=== PATIENT | male | born 1970 | race African-American/Black ===

== ENCOUNTER 2017-09-10 23:59 | Emergency (ER) | payer MEDICAID ==
[~2017-09-10] VITALS: Ht 177.8 cm; Wt 95.5 kg
[2017-09-11] VITALS: BP 140/80
[2017-09-11] MEDS ORDERED: FLUORESCEIN SODIUM 1MG/STRIP OP ONE (00:30)
[2017-09-11] MEDS ORDERED: TETRACAINE 0.5% OPHTH DROPS 4ML OP ONE (00:30)
[2017-09-11] MEDS ORDERED: BALANCED SALT IRRIG SOLN 15ML IO ONE (00:30)
== END 2017-09-11 01:40 | disposition home or self-care (01) ==
LOC: ER 23:59
DX: H10.11 Acute atopic conjunctivitis, right eye (principal); E11.9 Type 2 diabetes mellitus without complications; I10 Essential (primary) hypertension
CPT/HCPCS: 99283; J7040

== ENCOUNTER 2017-12-12 16:45 | Emergency (ER) | payer MEDICAID ==
[~2017-12-12] VITALS: Ht 177.8 cm; Wt 91.0 kg
[2017-12-12] MEDS ORDERED: LIDOCAINE HCL 1% 20ML VIAL (Pyxis) INJ MC ONE (21:45)
[2017-12-12] MEDS ORDERED: TETANUS, DIPHTHERIA, PERTUSSIS VAC/PF 0.5ML (>7YR OLD) IM ONE (21:45)
[2017-12-12] MEDS ORDERED: HYDROCODONE/ACETAMINOPHEN 5/325MG TABLET PO ONE (23:00)
[2017-12-12] MEDS ORDERED: MORPHINE SULFATE 10 MG/ML CPJ IM ONE (23:45)
[2017-12-12 23:54] LABS: BASOPHILS % 0.2 % (0.0-2.0); EOSINOPHILS % 0.1 % (0.0-5.0); HEMATOCRIT. 38.5 % (42.0-52.0); HEMOGLOBIN. 12.9 g/dL (14.0-18.0); LYMPHOCYTES % 16.7 % (20.0-50.0); MEAN CORPUSCULAR HEMOGLOBIN 30.7 pg (28.0-32.0); MEAN CORPUSCULAR VOLUME 91.7 fL (80.0-94.0); MEAN PLATELET VOLUME 8.8 fl (7.4-10.4); MONOCYTES % 8.8 % (2.0-8.0); NEUTROPHILS % 74.2 % (40.0-76.0); PLATELET 198 x1000/uL (130-400); RED CELL DISTRIBUTION WIDTH 13.7 % (11.6-14.6)
[2017-12-13 00:07] LABS: CHLORIDE 96 mEq/L (98-107)
[2017-12-13 00:43] VITALS: BP 159/96
== END 2017-12-13 00:56 | disposition home or self-care (01) ==
LOC: ER 20:39
DX: L02.211 Cutaneous abscess of abdominal wall (principal); I10 Essential (primary) hypertension; E11.9 Type 2 diabetes mellitus without complications; F17.200 Nicotine dependence, unspecified, uncomplicated
CPT/HCPCS: 10060; 36415; 76705; 80053; 83690; 85025; 90471; 90715; 96372; 99285; J2270; J3490; Z7610

== ENCOUNTER 2018-08-02 09:33 | Emergency (ER) | payer SELFPAY ==
[~2018-08-02] VITALS: Ht 177.8 cm; Wt 109.0 kg
[2018-08-02 10:01] VITALS: BP 150/84
== END 2018-08-02 11:52 | disposition home or self-care (01) ==
LOC: ER 09:33
DX: L30.4 Erythema intertrigo (principal); B02.9 Zoster without complications; E11.9 Type 2 diabetes mellitus without complications; I10 Essential (primary) hypertension; F17.200 Nicotine dependence, unspecified, uncomplicated
CPT/HCPCS: 99282